=== PATIENT | female | born 1990 | race Caucasian/White ===

== ENCOUNTER 2019-04-06 23:17 | Inpatient (IN) ==
[2019-04-06] MEDS ORDERED: OXYTOCIN 30 UNITS/500 ML BAG IV PRN ×2 (23:41)
[2019-04-06] MEDS ORDERED: PENICILLIN G POTASSIUM 6 MU in DEXTROSE 5% 250 ML IV STA (23:41)
[2019-04-06] MEDS: LACTATED RINGER'S 1,000 ML IV PRN (23:50)
--- NOTE | 2019-04-06 23:53 | History & Physical Report ---
Date of Service April 06, 2019 Assessment & Plan (1) Supervision of normal intrauterine in primigravida: 28yo at 36.2 weeks GA. PPROM 1. Fetus: Cat 1 2. Labor: confirmed PPROM. IOL with pitocin 3. Vitals: wnl 4. GBS unknown. Swab collected, Start PCN (2) premature rupture of membranes (PPROM) with unknown onset of labor: History of Present Illness Primary Care Provider: Jesika Zavaleta, 28yo at 36.2 weeks GA. Patient present with LOF. Denies ctx, VB. Good FM. course uncomplicated to date. Allergies Allergy/AdvReac Type Severity Reaction Status Date / Time ciprofloxacin Allergy Verified 03/26/19 08:54 Home Medications Home Medications Medication Instructions Recorded Confirmed Type 1 tab PO DAILY 01/02/19 03/26/19 History vitamin,calcium,lucrzlhk-kfiz-viwqh acid tablet ranitidine HCl PO 02/12/19 03/26/19 History magnesium PO 03/26/19 03/26/19 History Patient History Medical History H/O cold sores History of varicella Surgical History S/P wisdom tooth extraction Family History Father Heart disease Dyslipidemia Grandmother (Paternal) Diabetes Social History Smoking Status: Never smoker Physical Exam Constitutional: WD/WN, vitals as above Genitourinary: no vaginal lesions, no adnexal mass OB Exam Abdomen: + vertex Manual OB Exam: + cervical dilation (1.5), + cervical effacement 80%, + station -2 and + amniotic fluid (+ Pooling) clear, nitrazine positive and ferning present OB Exam Monitor Tracing: + external FHT monitor used, + external uterine monitor used, + category I and + normal FHT variability Results & Data Vital Signs (Past 12 Hours) Vital Signs Pulse BP 04/06/19 23:26 85 127/80
[2019-04-07 00:04] LABS: Hematocrit (blood only) 33.3 % (37-47); Hemoglobin 11.2 g/dL (12.0-16.0); Mean Corpuscular Hemoglobin 32.6 pg (25-34); Mean Corpuscular Volume 96.8 fL (80-100); Mean Platelet Volume 10.4 fL (7.4-10.4); Platelet Count 197 K/uL (130-400); RDW Coefficient of Variation 13.1 % (11.5-14.5); RDW Standard Deviation 46.1 fL (36.4-46.3); Red Blood Count 3.44 M/uL (4.2-5.4); White Blood Count 11.45 K/uL (4.8-10.8)
[2019-04-07 00:06] LABS: Mean Corpuscular Hgb Conc 33.6 g/dL (32-36)
[2019-04-07] MEDS: PENICILLIN G POTASSIUM 3 MU in DEXTROSE 5% 100 ML IV PRN ×2 (05:20→08:52)
[2019-04-07] MEDS: LACTATED RINGER'S 1,000 ML IV PRN (09:58)
[2019-04-07] MEDS ORDERED: LIDOCAINE 2% JELLY 5 ML TUBE ONE (13:01)
[2019-04-07] MEDS ORDERED: IBUPROFEN 600 MG TAB PO ONE (13:36)
[2019-04-07] MEDS ORDERED: HYDROCORTISONE ACETATE 25 MG SUPP PR PRN (15:49)
[2019-04-07] MEDS ORDERED: ACETAMINOPHEN 325 MG TAB PO PRN (15:49)
[2019-04-07] MEDS ORDERED: SUPERCREAM 0.870% 15 GM JAR EXT PRN (15:49)
[2019-04-07] MEDS ORDERED: BENZOCAINE 20% AER SPR 82.5 GM CAN EXT PRN (15:49)
[2019-04-07] MEDS ORDERED: OXYTOCIN 30 UNITS/500 ML BAG IV PRN (15:49)
[2019-04-07] MEDS ORDERED: DIPHTHERIA/TETANUS/PERTUSSIS 0.5 ML SYR/VIAL IM ONE (15:49)
--- NOTE | 2019-04-07 17:18 | Delivery Summary ---
DATE OF OPERATION: 04/07/2019 PROCEDURE: Normal spontaneous vaginal delivery. Second degree laceration repair SURGEON: Graeme Merritt MD. PREOPERATIVE DIAGNOSES: 1. premature rupture of membranes at 36+ weeks gestational age. 2. GBS unknown. POSTOPERATIVE DIAGNOSES: 1. premature rupture of membranes at 36+ weeks gestational age. 2. GBS unknown. 3. Status post delivery. ESTIMATED BLOOD LOSS: 300 mL. DRAINS: None. FLUIDS: Continuous lactated ringer. URINE OUTPUT: 300 mL via straight cath after delivery. FINDINGS: Viable male with weight of 6 pounds 7-1/2 ounces and Apgars of 7, 8 and 8 at 1, 5 and 10 minutes respectively. INDICATIONS: The patient is a 28-year-old G1, P0, admitted at 36 weeks 2 days gestational age for premature rupture of membranes. At time of admission, the patient was noted to be grossly ruptured; however, speculum exam was performed which confirmed pooling in Nitrazine and ferning. The patient was 1.5 cm dilated at that point and not feeling any contractions. She was started on oxytocin per regular protocol and afterwards continue to progress in labor and received an epidural for anesthesia. DESCRIPTION OF PROCEDURE: The patient progressed to 10 cm dilated, 100% effaced, +2 station, pushed for just under 2 hours to achieve delivery. Head of the delivered in IONA position, restituted to left transverse. No nuchal cord was noted. Body and shoulders quickly followed. was noted to be vigorous upon delivery. A 1 minute delayed cord clamping was initiated after which the cord was double clamped and cut. The cord blood was obtained. Attention was then turned to deliver the placenta, which took approximately 17 minutes to deliver, but did deliver intact with 3-vessel cord and gentle cord traction. On inspection of the perineum, vagina and cervix, there was noted to be a second degree laceration repair in traditional fashion with 3-0 Vicryl. Needle, sponge and instrument counts were correct at the completion of the case. Both mother and were stable in the immediate post delivery period. I attest to the content of the Intraoperative Record and any orders documented therein. Any exceptions are noted below. MTDD
[2019-04-07] MEDS: IBUPROFEN 600 MG TAB PO PRN (17:30)
[2019-04-07] MEDS: DOCUSATE SODIUM 100 MG CAP PO SCH (22:13)
[2019-04-08] MEDS: IBUPROFEN 600 MG TAB PO PRN ×4 (00:52→16:32)
--- NOTE | 2019-04-08 06:49 | Obstetrical Progress Note ---
Date of Service <Krishna Gonzalez DO - Last Filed: 04/08/19 06:50> April 08, 2019 Assessment & Plan <Krishna Gonzalez DO - Last Filed: 04/08/19 06:50> (1) premature rupture of membranes (PPROM) with unknown onset of labor: -PPD#1 - PPROM @ 36W 2D -Vitals reviewed, WNL (Tmax 36.9) - GBS pend, Blood Type O+ - PCN given prepartum - Clinically stable. - Feels well today. Eating well, voiding well, ambulating well. - Pain well controlled. - Routine post- care - After discharge will have [address] Merritt Day #:: 1 Subjective <Krishna Gonzalez DO - Last Filed: 04/08/19 06:50> Ambulation: ambulating normally Voiding: no voiding problems Passing Gas:: Yes Diet Tolerance:: regular diet Lochia:: Moderate Feeding Type:: breast feeding Current Pain Level(1-10): 4 (improves with analgesics) Patient is a 28 PPD#1. Patient states that she is feeling well today and that her pain is well controlled. She has no other complaints at this time. She denies any fevers or chills. Constitutional: no fever and no chills Respiratory: no cough, no dyspnea and no wheezing Cardiovascular: no chest pain, no dyspnea, no palpitations, no edema and no calf pain Breast: no breast pain Gastrointestinal: no abdominal pain, no nausea and no vomiting Genitourinary (female): no dysuria and no difficulty urinating Neurologic: no headache(s) Physical Exam <DO Arcadio Burnham Last Filed: 04/08/19 06:50> Constitutional WD/WN, vitals as above Respiratory normal respiratory effort, lungs clear to auscultation Cardiovascular Rate/Rhythm: regular rate and regular rhythm Heart Sounds: normal S1 and normal S2; no click, no gallop, no murmur and no cardiac rub Extremities: + edema (+1); no calf tenderness Gastrointestinal (Abdomen) Inspection/Auscultation: abdomen normal to inspection and normal bowel sounds Percussion/Palpation: abdomen soft; abdomen nontender Genitourinary OB Exam Abdomen: + fundal height Fundus: + firm and + relation to umbilicus (2cm below); not tender and not boggy Results & Data <Krishna Gonzalez DO - Last Filed: 04/08/19 06:50> Vital Signs (Past 12 Hours) Vital Signs Temp Pulse Resp BP 04/08/19 00:50 36.5 C 80 18 126/75 04/07/19 19:59 36.7 C 85 18 116/64 <Graeme Merritt MD - Last Filed: 04/08/19 07:02> Co-Signing Physician Notes Patient seen and evaluated and agree with the above findings and plan. Routine care Resident Activity Tracking <Krishna Gonzalez DO - Last Filed: 04/08/19 06:50> Resident Involvement: Resident Care Provided Care Provided: OB Delivery
[2019-04-08 06:50] LABS: Hematocrit (blood only) 32.6 % (37-47); Hemoglobin 10.8 g/dL (12.0-16.0)
[2019-04-08] MEDS: DOCUSATE SODIUM 100 MG CAP PO SCH ×2 (08:33→20:49)
[2019-04-08] MEDS: PRENATAL VITAMIN 1 TAB PO SCH (08:33)
[2019-04-08] MEDS ORDERED: BISACODYL 5 MG TABEC PO SCH (20:00)
[2019-04-09] MEDS: IBUPROFEN 600 MG TAB PO PRN ×2 (06:12→11:14)
--- NOTE | 2019-04-09 06:25 | Obstetrical Progress Note ---
Date of Service <Krishna Gonzalez - Last Filed: 04/09/19 06:25> April 09, 2019 Assessment & Plan <Krishna Gonzalez DO - Last Filed: 04/09/19 06:25> (1) premature rupture of membranes (PPROM) with unknown onset of labor: -PPD#2 - PPROM @ 36W 2D -Vitals reviewed, WNL (Tmax 36.9) - GBS pend, Blood Type O+ - PCN given prepartum - Clinically stable. - Feels well today. Eating well, voiding well, ambulating well. - Pain well controlled. - Routine post- care - After discharge will have [address] Merritt Day #:: 2 Subjective <Krishna Valerolata - Last Filed: 04/09/19 06:25> Ambulation: ambulating normally Voiding: no voiding problems Passing Gas:: Yes Diet Tolerance:: regular diet Lochia:: Small Feeding Type:: breast feeding Current Pain Level(1-10): 5 (improves with analgesics) Patient is a 28 PPD#2. Patient states that she is feeling well today and that her pain is well controlled. She has no other complaints at this time. Constitutional: no fever and no chills Respiratory: no cough, no dyspnea and no wheezing Cardiovascular: no chest pain, no dyspnea, no palpitations, no edema and no calf pain Breast: + breast pain (slight nipple pain with feedings) Gastrointestinal: no abdominal pain, no nausea and no vomiting Genitourinary (female): no dysuria and no difficulty urinating Neurologic: no headache(s) Physical Exam <Krishna Valerolata - Last Filed: 04/09/19 06:25> Constitutional WD/WN, vitals as above Respiratory normal respiratory effort, lungs clear to auscultation Cardiovascular Rate/Rhythm: regular rate and regular rhythm Heart Sounds: normal S1 and normal S2; no click, no gallop, no murmur and no cardiac rub Extremities: + edema (+1); no calf tenderness Gastrointestinal (Abdomen) Inspection/Auscultation: abdomen normal to inspection and normal bowel sounds Percussion/Palpation: abdomen soft; abdomen nontender Genitourinary OB Exam Abdomen: + fundal height Fundus: + firm and + relation to umbilicus (3cm below); not tender and not boggy Results & Data <Krishna Gonzalez DO - Last Filed: 04/09/19 06:25> Vital Signs (Past 12 Hours) Vital Signs Temp Pulse Resp BP BP 04/09/19 02:00 36.9 C 80 16 118/66 04/08/19 20:55 36.6 C 85 18 114/70 114/70 <Camila Craig MD, FACOG - Last Filed: 04/09/19 07:29> Co-Signing Physician Notes Resident Physician Supervision Note: I was present with Dr. Gonzalez during the history and exam. I discussed the case with the resident and agree with the findings and plan as documented in the note. Any exceptions or clarifications are listed here: doing well, ready for d/c home, f/u 6wks pp check, instructions reviewed. Documented By: Camila Craig MD, FACOG Resident Activity Tracking <Krishna Gonzalez DO - Last Filed: 04/09/19 06:25> Resident Involvement: Resident Care Provided Care Provided: OB Delivery
[2019-04-09] MEDS: DOCUSATE SODIUM 100 MG CAP PO SCH (07:55)
[2019-04-09] MEDS: PRENATAL VITAMIN 1 TAB PO SCH (07:55)
[2019-04-09] MEDS ORDERED: BISACODYL 10 MG SUPP PR PRN (09:00)
== END 2019-04-09 15:05 | disposition home or self-care (01) | DRG 807 ==
LOC: OPB 23:17 → 4S1 23:22 → 4S2 04-07 15:48

== ENCOUNTER 2021-03-03 04:39 | Inpatient (IN) ==
[2021-03-03] MEDS ORDERED: LACTATED RINGER'S 1,000 ML IV PRN (04:47)
[2021-03-03] MEDS ORDERED: LIDOCAINE 1% LOCAL 20 ML VIAL ONE (05:16)
[2021-03-03] MEDS: OXYTOCIN 30 UNITS/500 ML BAG IV PRN ×2 (05:16→06:02)
[2021-03-03] MEDS ORDERED: bisacodyL 10 MG SUPP PR PRN (05:34)
[2021-03-03] MEDS ORDERED: OXYTOCIN 30 UNITS/500 ML BAG IV PRN (05:34)
[2021-03-03] MEDS ORDERED: DIPHTHERIA/TETANUS/PERTUSSIS 0.5 ML SYR/VIAL IM ONE (05:34)
[2021-03-03] MEDS ORDERED: HYDROCORTISONE ACETATE 25 MG SUPP PR PRN (05:34)
[2021-03-03] MEDS ORDERED: ACETAMINOPHEN 325 MG TAB PO PRN (05:34)
[2021-03-03] MEDS ORDERED: BENZOCAINE 20% AER SPR 82.5 GM CAN EXT PRN (05:34)
[2021-03-03] MEDS ORDERED: SUPERCREAM 0.870% 15 GM JAR EXT PRN (05:34)
[2021-03-03] MEDS: IBUPROFEN 600 MG TAB PO PRN ×3 (06:03→20:31)
[2021-03-03 07:08] LABS: Hematocrit (blood only) 32.9 % (37-47); Hemoglobin 11.1 g/dL (12.0-16.0); Mean Corpuscular Hemoglobin 32.5 pg (25-34); Mean Corpuscular Hgb Conc 33.7 g/dL (32-36); Mean Corpuscular Volume 96.2 fL (80-100); Mean Platelet Volume 10.1 fL (7.4-10.4); Platelet Count 213 K/uL (130-400); RDW Coefficient of Variation 12.9 % (11.5-14.5); RDW Standard Deviation 44.6 fL (36.4-46.3); Red Blood Count 3.42 M/uL (4.2-5.4); White Blood Count 17.58 K/uL (4.8-10.8)
[2021-03-03] MEDS: FERROUS SULFATE 325 MG TAB PO SCH (08:51)
[2021-03-03] MEDS: DOCUSATE SODIUM 100 MG CAP PO SCH ×2 (08:55→20:31)
[2021-03-03] MEDS: PRENATAL VITAMIN 1 TAB PO SCH (08:55)
--- NOTE | 2021-03-04 07:34 | Obstetrical Progress Note ---
Date of Service <Tadeo CarmonaDO - Last Filed: 03/04/21 07:34> March 04, 2021 Assessment & Plan <Tadeo CarmonaDO - Last Filed: 03/04/21 07:34> (1) Encounter for care and examination after delivery: 30 yo PPD 1 s/p at 39 weeks -Continue routine care. Plan D/C today. -Vitals reviewed- HDS, afebrile -O+, GBS-, Rubella immune -Encourage ambulation, regular diet -Pain control with ibuprofen, acetaminophen PRN -Encouraged -F/u in 6 weeks with OB <David Alvarado MD, FACOG - Last Filed: 03/04/21 07:47> (1) Encounter for care and examination after delivery: Subjective <Tadeo CarmonaDO - Last Filed: 03/04/21 07:34> Ambulation: ambulating normally Voiding: no voiding problems Passing Gas:: Yes Diet Tolerance:: regular diet Lochia:: Small Feeding Type:: breast feeding Current Pain Level(1-10): 0 PPD 1 s/p . Patient seen and examined at bedside. Reports no acute overnight events. Review of Systems All systems reviewed & are unremarkable except as noted in HPI & below Physical Exam <Tadeo Carmona - Last Filed: 03/04/21 07:34> General: Alert, oriented, no acute distress Cardiac: Regular rate and rhythm, normal S1, S2. No murmurs appreciated. Respiratory: Clear to auscultation b/l with good air flow entry, symmetric chest rise and fall. No wheezes or crackles. No increased work of breathing or accessory muscle use Abdomen: Soft, nontender, nondistended. Fundus firm and palpable at 2 cm below umbilicus. No guarding or rebound. Skin: No rashes or lesions Extremities: Warm, dry, well-perfused with capillary refill <2s b/l. No lower extremity edema, erythema or swelling. Negative Quirino's sign b/l. Results & Data ([facility]) <Tadeo CarmonaDO - Last Filed: 03/04/21 07:34> Vital Signs (Past 12 Hours) Vital Signs Temp Pulse Resp BP Pulse Ox 03/04/21 04:30 36.8 C 76 16 112/70 97 03/03/21 23:35 36.6 C 75 20 106/64 98 03/03/21 20:00 36.9 C 80 18 111/68 97 <David Alvarado MD, FACOG - Last Filed: 03/04/21 07:47> Co-Signing Physician Notes Resident Physician Supervision Note: I was present with Dr. Carmona during the history and exam. I discussed the case with the resident and agree with the findings and plan as documented in the note. Any exceptions or clarifications are listed here: [None] Documented By: David Alvarado MD, FACOG
[2021-03-04] MEDS: PRENATAL VITAMIN 1 TAB PO SCH (08:39)
[2021-03-04] MEDS: FERROUS SULFATE 325 MG TAB PO SCH (08:39)
[2021-03-04] MEDS: DOCUSATE SODIUM 100 MG CAP PO SCH (08:39)
[2021-03-04] MEDS ORDERED: bisacodyL 5 MG TABEC PO SCH (20:00)
--- NOTE | 2021-03-09 09:17 | Delivery Summary ---
DATE OF SERVICE: 03/03/2021. DATE OF DELIVERY: 03/03/2021. SURGEON: Graeme Merritt MD. PREOPERATIVE DIAGNOSES: 1. Single intrauterine at 39 weeks 2 days' gestational age. 2. Spontaneous labor. POSTOPERATIVE DIAGNOSES: 1. Single intrauterine at 39 weeks 2 days' gestational age. 2. Spontaneous labor. 3. Precipitous labor. ESTIMATED BLOOD LOSS: 200 mL. DRAINS: None. FLUIDS: Continuous lactated Ringer. URINE OUTPUT: None. COMPLICATIONS: None. FINDINGS: Viable with weight of 7 pounds 14 ounces, Apgars were 7 and 8 at one and five heidi fabiano respectively. INDICATIONS: Dilma is a 30-year-old G2, P1, admitted at 39 weeks 2 days' gestational age, in active labor. At initial evaluation, the patient was found to be in active labor and 8-9 cm dilated. She underwent artificial rupture of membranes and rapidly progressed to complete-complete, +2 station ove r approximately 2 more contractions. The patient pushed over a couple contractions to achieve deliver y. DESCRIPTION OF PROCEDURE: The patient progressed to 10 cm dilated, 100% effaced, positive 2 station, pushed over intact perineum without anesthesia and delivered a viable with weight and Apgars as noted above. Head of the delivered in IONA position. After the head came out, there was noted to be a hand presentation out by the neck. The posterior hand and arm were then delivered and the remaining shoulders and body quickly followed. was noted to be vigorous soon after deliv jd: One minute delayed cord clamping was initiated, after which the cord was double clamped and cut . Cord blood was obtained. Attention was then turned to delivery of the placenta, which delivered intact, 3-vessel cord, gentle cord traction. On inspection of the perineum, vagina, cervix, there was noted to be a small second-d egree perineal laceration, which was repaired with 3-0 Vicryl continuous running crown stitch. Needl e, sponge, and instrument counts were correct at the completion of the case with mother and s table in the immediate post-delivery period. Job ID: [id number]
== END 2021-03-04 09:57 | disposition home or self-care (01) | DRG 807 ==
LOC: OPB 04:39 → 4S1 04:40 → 4S2 09:00